=== PATIENT | female | born 1980 | race African-American/Black ===

== ENCOUNTER 2016-07-13 11:09 | Emergency (ER) | payer OTHER ==
[2016-07-13 11:15] VITALS: BMI 51.7
--- NOTE | 2016-07-13 11:55 | PDOC ---
History of Present Illness - General Chief Complaint: Pain Stated Complaint: ABD PAIN Time Seen by Provider: 07/13/16 11:21 History Source: Patient Exam Limitations: No Limitations - History of Present Illness Travel History: No Initial Comments: 07/13/16 11:44 35-year-old female presents to the emergency department with complaints of urinary frequency, no appetite, and suprapubic cramping. Patient also complaining of breast tenderness along with the irregular menses. Patient denies history of ovarian cysts, endometriosis, fibroids, recent UTI, diarrhea or abdominal distention. Patient states no recent illness, recent travel, dyspareunia. Timing/Duration: reports: getting worse Quality: reports: mild, cramping Abdominal Pain Onset Location: reports: suprapubic Pain Radiation: reports: no radiation Activities at Onset: reports: none Aggravating Factors: improves with: None Alleviating Factors: improves with: None Past History - Past Medical History Allergies/Adverse Reactions: Allergies Allergy/AdvReac Type Severity Reaction Status Date / Time butorphanol tartrate Allergy Verified 07/13/16 11:15 [From Stadol] Home Medications: Ambulatory Orders NK [No Known Home Medication] 07/13/16 Cardiac Disorders: (cardiac arrest after , and after given Stadol.) Other medical history: obesity - Reproductive History LMP Normal: No - Psycho/Social/Smoking Cessation Hx Suicidal Ideation: No Smoking History: Current every day smoker Number of Cigarettes Smoked Daily: 4 Information on smoking cessation initiated: Yes 'Breaking Loose' booklet given: 07/13/16 Hx Alcohol Use: No Drug/Substance Use Hx: No Substance Use Type: None Patient Lives Alone: No Lives with/in: spouse/SO Review of Systems - Review of Systems Able to Perform ROS?: Yes Constitutional: Yes: Loss of Appetite HEENTM: No: Symptoms Reported Respiratory: No: Symptoms reported Cardiac (ROS): No: Symptoms Reported ABD/GI: Yes: Abdominal cramping : Yes: Frequency Musculoskeletal: No: Symptoms Reported Integumentary: No: Symptoms Reported Neurological: No: Symptoms reported *Physical Exam - Vital Signs Last Vital Signs Temp Pulse Resp BP Pulse Ox 98.6 F 103 H 19 160/95 95 07/13/16 11:11 07/13/16 11:11 07/13/16 11:11 07/13/16 11:11 07/13/16 11:11 - Physical Exam General Appearance: Yes: Nourished, Appropriately Dressed. No: Apparent Distress HEENT: positive: Pharynx Normal Neck: positive: Normal Thyroid, Supple Respiratory/Chest: positive: Lungs Clear, Normal Breath Sounds. negative: Respiratory Distress, Accessory Muscle Use Cardiovascular: positive: Regular Rhythm, Tachycardia (103). negative: Murmur Gastrointestinal/Abdominal: positive: Normal Bowel Sounds, Soft, Tenderness ( midsuprapubic), Other (large panus). negative: Distended, Guarding, Rebound Musculoskeletal: negative: CVA Tenderness Extremity: positive: Normal Capillary Refill Integumentary: positive: Normal Color, Warm, Moist Neurologic: positive: Motor Strength 5/5 (ambulatory) Medical Decision Making - Medical Decision Making 07/13/16 12:00 Patient with complaints of decreased appetite, suprapubic cramping, urinary frequency and breast tenderness. Patient states did not get her menses this month. Patient unsure if she is . Patient exam did have mid suprapubic tenderness and was slightly tachycardic. We will obtain a urine urinalysis and urine and then decide plan of care from the results. 07/13/16 13:24 Laboratory Tests 07/13/16 11:28 Urine Ketones Negative Urine Nitrite Negative Ur Leukocyte Esterase 1+ H Urine WBC 7 Urine culture was sent. patient will be discharged home with Macrobid. Patient also told to return to ED if symptoms worsen and follow-up with [facility] in regards to irregular menses *DC/Admit/Observation/Transfer Diagnosis at time of Disposition: Urinary tract infection Qualifiers: Urinary tract infection type: acute cystitis Hematuria presence: without hematuria Qualified Code(s): N30.00 - Acute cystitis without hematuria - Discharge Dispostion Disposition: HOME Condition at time of disposition: Good - Referrals Referrals: Luz Wang [Primary Care Provider] - - Patient Instructions Printed Discharge Instructions: DI for Urinary Tract Infection (UTI) Additional Instructions: Please take antibiotics until completed. Please drink plenty of water. May take Motrin or Tylenol for any discomfort. Please follow-up with your PCP in regards to irregular menses.
[2016-07-13 12:37] LABS: URINE APPEARANCE SLCLOUDY; URINE BILIRUBIN NEGATIVE (NEGATIVE); URINE BLOOD NEGATIVE (NEGATIVE); URINE COLOR YELLOW; URINE GLUCOSE (UA) NEGATIVE (NEGATIVE); URINE KETONE NEGATIVE (NEGATIVE); URINE NITRITE NEGATIVE (NEGATIVE); URINE PROTEIN NEGATIVE (NEGATIVE); URINE UROBILINOGEN NEGATIVE E.U./dl (0.2-1.0)
[2016-07-13 12:56] LABS: URINE LEUK ESTERASE 1+ (NEGATIVE)
[2016-07-13 12:59] LABS: URINE MUCUS FEW; URINE RBC 1 /hpf (0-3); URINE WBC 7 /hpf (3-5)
[2016-07-13 13:35] VITALS: BP 134/85; PULSE 84; TEMP 98
== END 2016-07-13 13:35 | disposition home or self-care (01) ==
LOC: EDBD 11:09 → JER 11:09
DX: N30.00 Acute cystitis without hematuria (principal)
CPT/HCPCS: 81003; 81015; 84703; 87086; 99282-25

== ENCOUNTER 2020-11-22 12:09 | Emergency (ER) | payer OTHER ==
[2020-11-22 12:26] VITALS: TEMP 98.1; BMI 37.5
[2020-11-22] MEDS ORDERED: KETOROLAC TROMETHAMINE 60 MG/2 ML VIAL IM ONE (12:40)
[2020-11-22] MEDS ORDERED: KETOROLAC TROMETHAMINE 60 MG/2 ML VIAL ONE (12:53)
[2020-11-22 18:35] VITALS: BP 126/80; PULSE 86
== END 2020-11-22 18:35 | disposition home or self-care (01) ==
LOC: JER 12:09 → JERFT 12:09 → JER 18:35
PROC: 3E0233Z Introduction of Anti-inflammatory into Muscle, Percutaneous Approach (ICD-10-PCS; principal; 2020-11-22)
DX: S49.92XA Unspecified injury of left shoulder and upper arm, initial encounter (principal); W01.0XXA Fall on same level from slipping, tripping and stumbling without subsequent striking against object, initial encounter
CPT/HCPCS: 71046-TC-FY; 71111-TC-FY; 73030-TC-LT-FY; 73200-TC-RT; 99285-25

== ENCOUNTER 2023-05-04 21:37 | Emergency (ER) | payer OTHER ==
[2023-05-04 21:49] VITALS: BP 143/80; PULSE 93; RESP 16; TEMP 97.9; BMI 47.0
[2023-05-04] MEDS ORDERED: PIPERACILLIN/TAZOB 4.5 GM 4.5 GM/100 ML BAG IVPB ONE (22:30)
[2023-05-04] MEDS ORDERED: VANCOMYCIN 1 GRAM (PRE-DOCKED) 1,000 MG/250 ML BAG IVPB ONE (22:30)
[2023-05-04] MEDS: PIPERACILLIN/TAZOB 4.5 GM 4.5 GM in DEXTROSE 5%-WATER 100 ML IVPB ONE (22:55)
[2023-05-04 22:59] LABS: BASO % 0.6 % (0-2.0); EOS % 0.7 % (0-4.5); HEMATOCRIT 39.8 % (32.4-45.2); LYMPH % 15.7 % (8-40); MCH 27.6 pg (25.7-33.7); MCHC 32.6 g/dl (32.0-36.0); MEAN CELL VOLUME 84.6 fl (80-96); MEAN PLT VOLUME 8.1 fl (7.5-11.1); MONO % 8.9 % (3.8-10.2); NEUT % 74.1 % (42.8-82.8); PLATELET COUNT 366 10^3/uL (134-434); RBC 4.71 M/mm3 (3.60-5.2); RDW 15.1 % (11.6-15.6); WHITE BLOOD COUNT 10.2 K/mm3 (4.0-10.0)
[2023-05-04 23:06] LABS: INR 1.09 (0.83-1.09); PROTHROMBIN TIME (PATIENT) 12.6 SEC (9.7-13.0)
[2023-05-04 23:09] LABS: ACTIVATED PTT 29.7 SECONDS (25.2-36.5)
[2023-05-04 23:33] LABS: CALCIUM 8.3 mg/dL (8.5-10.1)
[2023-05-04 23:34] LABS: BLOOD UREA NITROGEN 10.8 mg/dL (7-18)
[2023-05-04] MEDS: VANCOMYCIN 1,000 MG in DEXTROSE 5%-WATER - 250 ML IVPB ONE (23:36)
[2023-05-04 23:37] LABS: CREATININE 0.8 mg/dL (0.55-1.3)
[2023-05-04 23:38] LABS: BILIRUBIN,TOTAL 0.2 mg/dL (0.2-1)
[2023-05-04 23:39] LABS: TOT PROT 7.7 g/dl (6.4-8.2)
== END 2023-05-05 03:21 | disposition short-term general hospital (02) ==
LOC: JER 21:37
DX: T21.03XA Burn of unspecified degree of upper back, initial encounter (principal); L08.9 Local infection of the skin and subcutaneous tissue, unspecified; X16.XXXA Contact with hot heating appliances, radiators and pipes, initial encounter; Z20.822 Contact with and (suspected) exposure to COVID-19
CPT/HCPCS: 0241U-QW; 36415; 80053; 83735; 84703; 85025; 85610; 85730; 86850; 86900; 86901; 87040; 93005; 93010; 99285-25